=== PATIENT | female | born 1955 | race African-American/Black ===

== ENCOUNTER 2017-06-06 08:58 | Emergency (ER) | payer MEDICAID, OTHER ==
[~2017-06-06] VITALS: Ht 165.1 cm; Wt 106.6 kg
[~2017-06-06 08:58] MED LIST: ASPIR 8181 MG ORAL; ATORVASTATIN CA20 MG ORAL; BENAZEPRIL HCL40 MG ORAL; BUSPIRONE HCL5 M2 ORAL; IBUPROFEN600 MG ORAL; KEFLEX500 MG ORAL; LITHIUM CARBON300 MG ORAL; METFORMIN HCL500 M1 ORAL; NORCO 5-325 TA1 EACH ORAL; OMEPRAZOLE20 M2 ORAL; TRAZODONE HCL150 MG ORAL; ZOLOFT100 MG ORAL; ZYPREXA10 MG ORAL
[2017-06-06 09:20] VITALS: BP 128/92
[2017-06-06] MEDS ORDERED: Albuterol ud Inhalation HHN ONE (09:30)
[2017-06-06] MEDS ORDERED: Aspirin Baby 81mg ORAL ONE (09:30)
[2017-06-06] MEDS ORDERED: Ipratropium 0.02% Inh Soln 2.5ml UD HHN ONE (09:30)
--- NOTE | 2017-06-06 09:30 | Emergency Room Report ---
History of Present Illness General Chief Complaint: Dyspnea/Respdistress Source: Patient, Medical Record Present Illness HPI Patient presents with complaints of shortness of breath patient reports that the symptoms started acutely last night She has had increased cough and congestion Feels that her breathing is worse with exertion Patient felt weakness in her legs denies any chest pain however does have exertional dyspnea Denies any dysuria or frequency denies any swelling in her legs patient feels that with the increased cough she has abdominal discomfort as well Allergies: Coded Allergies: No Known Allergies (Verified , 01/31/10) Patient History Past Medical History: see triage record Pertinent Family History: none Last Menstrual Period: hysterectomy Reviewed Nursing Documentation: PMH: Agreed, PSxH: Agreed Nursing Documentation-PMH Past Medical History: No History, Except For Hx Hypertension: Yes Hx Diabetes: Yes Hx Gastrointestinal Problems: Yes - GERD Review of Systems All Other Systems: negative except mentioned in HPI Physical Exam Vital Signs Date Time Temp Pulse Resp B/P (MAP) Pulse Ox O2 Delivery O2 Flow Rate FiO2 06/06/17 09:05 107 18 175/99 93 Room Air 06/06/17 09:15 98.2 Sp02 EP Interpretation: reviewed, normal General Appearance: mild distress - appears short of breath Head: normocephalic, atraumatic Eyes: bilateral eye PERRL, bilateral eye EOMI ENT: hearing grossly normal, normal pharynx, TMs + canals normal, uvula midline Neck: full range of motion, supple, no meningismus, no bony tend Respiratory: no respiratory distress, no retraction, no accessory muscle use, crackles - diffusely Cardiovascular #1: normal peripheral pulses, regular rate, rhythm, no edema, no gallop, no JVD, no murmur Gastrointestinal: normal bowel sounds, non tender, soft, no mass, no organomegaly, non-distended, no guarding, no hernia, no pulsatile mass, no rebound Genitourinary: no CVA tenderness Musculoskeletal: normal inspection Neurologic: oriented x3, responsive, beam saw operator III-XII nml as tested, motor strength/ tone normal, sensory intact Psychiatric: mood/affect normal Skin: normal color, no rash, warm/dry, palpation normal Lymphatic: normal inspection, no adenopathy Medical Decision Making Diagnostic Impression: Primary Impression: Dyspnea Additional Impressions: URI (upper respiratory infection) COPD (chronic obstructive pulmonary disease) ACS (acute coronary syndrome) ER Course Patient is a fairly complex patient with multiple differential to consideration including but not limited to cardiac cardiopulmonary and vascular emergencies Patient initiated on breathing treatments X-ray does not show any obvious infiltrate however there is cardiomegaly Patient's presentation is concerning for cardiac pathology as well given the exertional dyspnea My suspicion for pulmonary embolism is low and the patient has not been evaluated with CT patient has other URI symptoms At this time improved with breathing treatments and requires inpatient care Given the insurance coverage patient was transferred Labs Test 06/06/17 09:30 White Blood Count 6.2 K/UL (4.8-10.8) Red Blood Count 4.28 M/UL (4.20-5.40) Hemoglobin 13.0 G/DL (12.0-16.0) Hematocrit 41.8 % (37.0-47.0) Mean Corpuscular Volume 98 FL (80-99) Mean Corpuscular Hemoglobin 30.5 PG (27.0-31.0) Mean Corpuscular Hemoglobin Concent 31.2 G/DL (32.0-36.0) Red Cell Distribution Width 11.1 % (11.6-14.8) Platelet Count 173 K/UL (150-450) Mean Platelet Volume 7.6 FL (6.5-10.1) Neutrophils (%) (Auto) 71.3 % (45.0-75.0) Lymphocytes (%) (Auto) 11.6 % (20.0-45.0) Monocytes (%) (Auto) 9.9 % (1.0-10.0) Eosinophils (%) (Auto) 6.3 % (0.0-3.0) Basophils (%) (Auto) 0.9 % (0.0-2.0) Sodium Level 142 MMOL/L (136-145) Potassium Level 4.8 MMOL/L (3.5-5.1) Chloride Level 105 MMOL/L (98-107) Carbon Dioxide Level 29 MMOL/L (21-32) Anion Gap 8 mmol/L (5-15) Blood Urea Nitrogen 6 mg/dL (7-18) Creatinine 1.0 MG/DL (0.55-1.30) Estimat Glomerular Filtration Rate > 60 mL/min (>60) Glucose Level 197 MG/DL (74-106) Calcium Level 9.4 MG/DL (8.5-10.1) Total Bilirubin 0.6 MG/DL (0.2-1.0) Aspartate Amino Transf (AST/SGOT) 37 U/L (15-37) Alanine Aminotransferase (ALT/SGPT) 21 U/L (12-78) Alkaline Phosphatase 79 U/L (46-116) Total Creatine Kinase 146 U/L (26-308) Creatine Kinase MB < 0.5 NG/ML (0.0-3.6) Creatine Kinase MB Relative Index 0.3 Troponin I 0.000 ng/mL (0.000-0.056) Pro-B-Type Natriuretic Peptide 20 pg/mL (0-125) Total Protein 7.9 G/DL (6.4-8.2) Albumin 3.5 G/DL (3.4-5.0) Globulin 4.4 g/dL Albumin/Globulin Ratio 0.8 (1.0-2.7) Lipase 142 U/L (73-393) EKG Diagnostic Results Rate: normal Rhythm: NSR ST Segments: other - Nonspecific ST and T-wave changes Rhythm Strip Diag. Results EP Interpretation: yes Rate: 77 Rhythm: NSR, no PVC's, no ectopy Chest X-Ray Diagnostic Results Chest X-Ray Diagnostic Results : Chest X-Ray Ordered: Yes Indication: Shortness of Breath EP Interpretation: Yes Interpretation: no consolidation, no effusion, no pneumothorax, other - Mild pulmonary congestion, cardiomegaly Impression: Other - mild pulmonary congestion Electronically Signed by: Sam Cummins DO Last Vital Signs Date Time Temp Pulse Resp B/P (MAP) Pulse Ox O2 Delivery O2 Flow Rate FiO2 06/06/17 09:20 98.0 105 18 128/92 94 Room Air Status: improved Disposition: XFER SHT-TRM HOSP Condition: Improved Referrals: NON PHYSICIAN (PCP) SAM CUMMINS D.O. Jun 06, 2017 09:30
[2017-06-06 10:07] LABS: BASOPHILS % (AUTO) 0.9 % (0.0-2.0); EOSINOPHILS % (AUTO) 6.3 % (0.0-3.0); HEMATOCRIT 41.8 % (37.0-47.0); LYMPHOCYTES % (AUTO) 11.6 % (20.0-45.0); MEAN CORPUSCULAR VOLUME 98 FL (80-99); MONOCYTES % (AUTO) 9.9 % (1.0-10.0); NEUTROPHILS % (AUTO) 71.3 % (45.0-75.0); PLATELET COUNT 173 K/UL (150-450); RED BLOOD COUNT 4.28 M/UL (4.20-5.40); RED CELL DISTRIBUTION WIDTH 11.1 % (11.6-14.8); WHITE BLOOD COUNT 6.2 K/UL (4.8-10.8)
[2017-06-06 10:18] LABS: ALANINE AMINOTRANSFERASE 21 U/L (12-78); ALBUMIN 3.5 G/DL (3.4-5.0); ALBUMIN/GLOBULIN RATIO 0.8 (1.0-2.7); ALKALINE PHOSPHATASE 79 U/L (46-116); ANION GAP 8 mmol/L (5-15); ASPARTATE AMINO TRANSFERASE 37 U/L (15-37); BILIRUBIN,TOTAL 0.6 MG/DL (0.2-1.0); BLOOD UREA NITROGEN 6 mg/dL (7-18); CALCIUM 9.4 MG/DL (8.5-10.1); CARBON DIOXIDE 29 MMOL/L (21-32); CHLORIDE 105 MMOL/L (98-107); POTASSIUM 4.8 MMOL/L (3.5-5.1); SODIUM 142 MMOL/L (136-145)
[2017-06-06 10:28] LABS: CKMB < 0.5 NG/ML (0.0-3.6); CREATINE KINASE 146 U/L (26-308)
[2017-06-06] MEDS ORDERED: Solu-MEDROL 125mg Inj IVP ONE (10:45)
[2017-06-06 11:59] VITALS: BP 123/85
--- NOTE | 2017-06-06 12:08 | Diagnostic Imaging Report ---
Indication: Dyspnea Comparison: 12/14/2007 A single view chest radiograph was obtained. Findings: Some vascular prominence demonstrated with cardiomegaly. Lung volumes are low. Bones are osteopenic. Impression: Query mild CHF
[2017-06-06 13:00] VITALS: BP 147/81
--- NOTE | 2017-06-16 16:21 | Cardiology Report ---
APPROVED REPORT EKG Measurement Heart [id number] 140P59 [id number] Normal sinus rhythm Anterior infarct, age undetermined T wave abnormality, consider anterolateral ischemia Abnormal ECG
--- NOTE | 2017-06-16 16:21 | Cardiology Report ---
APPROVED REPORT EKG Measurement Heart [id number] 140P59 [id number] Normal sinus rhythm Anterior infarct, age undetermined T wave abnormality, consider anterolateral ischemia Abnormal ECG
--- NOTE | 2017-06-16 16:21 | Cardiology Report ---
APPROVED REPORT EKG Measurement Heart [id number] 140P59 [id number] Normal sinus rhythm Anterior infarct, age undetermined T wave abnormality, consider anterolateral ischemia Abnormal ECG
== END 2017-06-06 13:00 | disposition short-term general hospital (02) ==
LOC: EMR 09:26
DX: R06.00 Dyspnea, unspecified (principal); J06.9 Acute upper respiratory infection, unspecified; J44.9 Chronic obstructive pulmonary disease, unspecified; I24.9 Acute ischemic heart disease, unspecified; I10 Essential (primary) hypertension; E11.9 Type 2 diabetes mellitus without complications; K21.9 Gastro-esophageal reflux disease without esophagitis
CPT/HCPCS: 36415; 71010; 80053; 82550; 82553; 82962; 83690; 83880; 84484; 85025; 87040; 93005; 94640; 94664; 96374; 99285; J2930

== ENCOUNTER 2018-07-11 07:49 | Emergency (ER) | payer OTHER ==
[~2018-07-11] VITALS: Ht 167.6 cm; Wt 90.7 kg
[2018-07-11] MEDS ORDERED: Isovue-300 100ml vial INJ PRN (08:00)
[2018-07-11] MEDS ORDERED: Ketorolac 30mg Inj IV ONE (08:00)
[2018-07-11 08:19] VITALS: BP 121/80
[2018-07-11 08:29] LABS: BASOPHILS % (AUTO) 0.6 % (0.0-2.0); EOSINOPHILS % (AUTO) 4.2 % (0.0-3.0); HEMATOCRIT 42.9 % (37.0-47.0); HEMOGLOBIN 14.5 G/DL (12.0-16.0); LYMPHOCYTES % (AUTO) 23.9 % (20.0-45.0); MEAN CORPUSCULAR VOLUME 91 FL (80-99); MONOCYTES % (AUTO) 6.7 % (1.0-10.0); NEUTROPHILS % (AUTO) 64.7 % (45.0-75.0); PLATELET COUNT 225 K/UL (150-450); RED BLOOD COUNT 4.72 M/UL (4.20-5.40); RED CELL DISTRIBUTION WIDTH 10.3 % (11.6-14.8); WHITE BLOOD COUNT 8.9 K/UL (4.8-10.8)
[2018-07-11 08:37] LABS: APPEARANCE,URINE CLEAR; BILIRUBIN, URINE NEGATIVE (NEGATIVE); COLOR,URINE PALE YELLOW; GLUCOSE, URINE (UA) NEGATIVE (NEGATIVE); KETONES,URINE NEGATIVE (NEGATIVE); LEUKOCYTE ESTERASE ,URINE 1+ (NEGATIVE); NITRITE,URINE NEGATIVE (NEGATIVE); PH,URINE 6 (4.5-8.0); PROTEIN,URINE NEGATIVE (NEGATIVE); UROBILINOGEN,URINE NORMAL MG/DL (0.0-1.0)
--- NOTE | 2018-07-11 08:44 | Emergency Room Report ---
History of Present Illness General Chief Complaint: Abdominal Pain Source: Patient Present Illness HPI This patient states that about 2 days ago she developed lower abdominal pain. She states the pain is severe. She denies dysuria or hematuria. She denies fever or chills. She denies nausea or vomiting. She denies diarrhea. She has no other complaints. Allergies: Coded Allergies: No Known Allergies (Verified , 07/11/18) Patient History Past Medical History: see triage record, DM, HTN, GERD Social History: Denies: smoking, alcohol use, drug use Reviewed Nursing Documentation: PMH: Agreed; PSxH: Agreed Nursing Documentation-PMH Past Medical History: No History, Except For Hx Hypertension: Yes Hx Diabetes: Yes Hx Gastrointestinal Problems: Yes - GERD History Of Psychiatric Problem: Yes - Paranoid Schizo Review of Systems All Other Systems: negative except mentioned in HPI Physical Exam Vital Signs Date Time Temp Pulse Resp B/P (MAP) Pulse Ox O2 Delivery O2 Flow Rate FiO2 07/11/18 07:52 97.9 96 16 121/80 94 Sp02 EP Interpretation: reviewed, normal General Appearance: no apparent distress, alert, GCS 15, non-toxic Head: normocephalic, atraumatic Eyes: bilateral eye normal inspection, bilateral eye PERRL ENT: hearing grossly normal, normal pharynx, no angioedema, normal voice Neck: full range of motion, supple/symm/no masses Respiratory: chest non-tender, lungs clear, normal breath sounds, no respiratory distress, no retraction, no accessory muscle use, speaking full sentences Cardiovascular #1: regular rate, rhythm, no edema Gastrointestinal: normal bowel sounds, soft, no guarding, no rebound, tenderness Rectal: deferred Musculoskeletal: back normal, gait/station normal, normal range of motion, non- tender Neurologic: alert, oriented x3, responsive, motor strength/tone normal, sensory intact, speech normal Psychiatric: judgement/insight normal, memory normal, mood/affect normal, no suicidal/homicidal ideation Skin: normal color, no rash, warm/dry, well hydrated Medical Decision Making Diagnostic Impression: Primary Impression: Abdominal pain ER Course This patient presented with abdominal pain and she underwent CT of the abdomen and pelvis. The patient's bladder was distended on CT report. However, the patient urinated appropriately here in the emergency department about 650 mL. Possibly the patient was holding her urine just prior to the CT. Regardless, there was no emergency intra-abdominal process identified. There were some incidental findings to include a liver versus pancreatic cyst. There is no evidence of urinary tract infection. Overall, the patient's evaluation was benign. She was comfortable and eating here in the emergency department. She is given close return precautions and follow-up instructions. Please note that this Emergency Department Report was dictated using [employer] [employer] technology software, occasionally this can lead to erroneous entry secondary to interpretation by the dictation equipment. Laboratory Tests Test 07/11/18 08:10 White Blood Count 8.9 K/UL (4.8-10.8) Red Blood Count 4.72 M/UL (4.20-5.40) Hemoglobin 14.5 G/DL (12.0-16.0) Hematocrit 42.9 % (37.0-47.0) Mean Corpuscular Volume 91 FL (80-99) Mean Corpuscular Hemoglobin 30.7 PG (27.0-31.0) Mean Corpuscular Hemoglobin Concent 33.8 G/DL (32.0-36.0) Red Cell Distribution Width 10.3 % (11.6-14.8) L Platelet Count 225 K/UL (150-450) Mean Platelet Volume 9.0 FL (6.5-10.1) Neutrophils (%) (Auto) 64.7 % (45.0-75.0) Lymphocytes (%) (Auto) 23.9 % (20.0-45.0) Monocytes (%) (Auto) 6.7 % (1.0-10.0) Eosinophils (%) (Auto) 4.2 % (0.0-3.0) H Basophils (%) (Auto) 0.6 % (0.0-2.0) Urine Color Pale yellow Urine Appearance Clear Urine pH 6 (4.5-8.0) Urine Specific [place] 1.015 (1.005-1.035) Urine Protein Negative (NEGATIVE) Urine Glucose (UA) Negative (NEGATIVE) Urine Ketones Negative (NEGATIVE) Urine Blood Negative (NEGATIVE) Urine Nitrite Negative (NEGATIVE) Urine Bilirubin Negative (NEGATIVE) Urine Urobilinogen Normal MG/DL (0.0-1.0) Urine Leukocyte Esterase 1+ (NEGATIVE) H Urine RBC 0-2 /HPF (0 - 2) Urine WBC 2-4 /HPF (0 - 2) Urine Squamous Epithelial Cells Moderate /LPF (NONE/OCC) H Urine Bacteria Few /HPF (NONE) Sodium Level 140 MMOL/L (136-145) Potassium Level 3.7 MMOL/L (3.5-5.1) Chloride Level 105 MMOL/L (98-107) Carbon Dioxide Level 27 MMOL/L (21-32) Anion Gap 8 mmol/L (5-15) Blood Urea Nitrogen 11 mg/dL (7-18) Creatinine 1.2 MG/DL (0.55-1.30) Estimate Glomerular Filtration Rate 54.9 mL/min (>60) Glucose Level 132 MG/DL (74-106) H Calcium Level 9.9 MG/DL (8.5-10.1) Total Bilirubin 0.4 MG/DL (0.2-1.0) Aspartate Amino Transferase (AST) 14 U/L (15-37) L Alanine Aminotransferase (ALT) 18 U/L (12-78) Alkaline Phosphatase 75 U/L (46-116) Total Protein 8.4 G/DL (6.4-8.2) H Albumin 3.9 G/DL (3.4-5.0) Globulin 4.5 g/dL Albumin/Globulin Ratio 0.9 (1.0-2.7) L CT/MRI/US Diagnostic Results CT/MRI/US Diagnostic Results : Imaging Test Ordered: CT abd/pelvis Impression Distended urinary bladder. Consider Galeas catheter. No hydronephrosis. No acute findings are appreciated. Prominent cyst between the liver and pancreas may be of pancreatic origin. Recommend follow-up, nonemergent workup which may include MRI with gadolinium pancreas protocol. Bilateral renal cysts Trace bilateral pleural effusions. Cardiomegaly Last Vital Signs Date Time Temp Pulse Resp B/P (MAP) Pulse Ox O2 Delivery O2 Flow Rate FiO2 07/11/18 08:19 94 16 07/11/18 08:19 97.9 121/80 94 Status: improved Disposition: HOME, SELF-CARE Condition: Improved Patient Instructions: Abdominal Pain, Adult Milagros Cornell DO Jul 11, 2018 08:44
[2018-07-11 08:50] LABS: ANION GAP 8 mmol/L (5-15); BLOOD UREA NITROGEN 11 mg/dL (7-18); CALCIUM 9.9 MG/DL (8.5-10.1); CARBON DIOXIDE 27 MMOL/L (21-32); CHLORIDE 105 MMOL/L (98-107); CREATININE 1.2 MG/DL (0.55-1.30); POTASSIUM 3.7 MMOL/L (3.5-5.1); SODIUM 140 MMOL/L (136-145)
[2018-07-11 08:55] LABS: ALANINE AMINOTRANSFERASE 18 U/L (12-78); ALBUMIN 3.9 G/DL (3.4-5.0); ALBUMIN/GLOBULIN RATIO 0.9 (1.0-2.7); ALKALINE PHOSPHATASE 75 U/L (46-116); ASPARTATE AMINO TRANSFERASE 14 U/L (15-37); BILIRUBIN,TOTAL 0.4 MG/DL (0.2-1.0)
[2018-07-11 13:00] VITALS: BP 120/78
--- NOTE | 2018-07-11 13:47 | Diagnostic Imaging Report ---
Indication: Abdominal pain Technique: Continuous helical transaxial imaging of the abdomen and pelvis was obtained from the lung bases to the pubic symphysis during intravenous contrast administration. Coronal 2-D reformats were also obtained. Study obtained in a Siemens sensation [address] Automatic Exposure Control was utilized. Total Dose length Product (DLP): 1080.[address] Dose Index Volume (CTDIvol): 18.84 mGy Comparison: None Findings: Small bilateral pleural effusions are present. There is a hiatal hernia. Cardiomegaly is present. Minimal basal atelectasis demonstrated posteriorly. There is a prominent cyst measuring 6.7 x 4.6 cm on transaxial images seen between the lateral segment of the left lobe of the liver and the body of the pancreas. This cyst may be of pancreatic origin but this is not for certain. There are hypodensities demonstrated within both kidneys some too small to characterize adequately. The gallbladder is contracted and grossly unremarkable. There is a no adrenal mass or hydronephrosis. Spleen is unremarkable. There is no bowel obstruction identified. The appendix is normal. Urinary bladder is mildly distended. Uterus is atrophic. IMPRESSION: Distended urinary bladder. Consider Galeas catheter. No hydronephrosis. No acute findings are appreciated. Prominent cyst between the liver and pancreas may be of pancreatic origin. Recommend follow-up, nonemergent workup which may include MRI with gadolinium pancreas protocol. Bilateral renal cysts Trace bilateral pleural effusions. Cardiomegaly The CT scanner at [facility] [place] is accredited by the [employer] and the scans are performed using dose optimization techniques as appropriate to a performed exam including Automatic Exposure control.
[2018-07-11] MEDS ORDERED: MIRALAX17 G2 ORAL (14:28)
[2018-07-11] MEDS ORDERED: COLACE100 MG ORAL (14:28)
[2018-07-11 18:07] VITALS: BP 120/78
== END 2018-07-11 16:00 | disposition home or self-care (01) ==
LOC: EDBD 07:49 → EMR 08:37
DX: R10.30 Lower abdominal pain, unspecified (principal); I10 Essential (primary) hypertension; E11.9 Type 2 diabetes mellitus without complications; K21.9 Gastro-esophageal reflux disease without esophagitis; F20.0 Paranoid schizophrenia; N28.1 Cyst of kidney, acquired; I51.7 Cardiomegaly
CPT/HCPCS: 36415; 74177; 80053; 81003; 85025; 96361; 96374; 99284; J1885; Q9967